=== PATIENT | female | born 1980 | race Caucasian/White ===

== ENCOUNTER → 2018-03-06 | Outpatient (CLI) | payer OTHER ==
[2018-03-06 10:58] LABS: AMPHETAMINE/METHAMPHETAMINE NEG (NEG); BARBITURATES NEG (NEG); BENZODIAZEPINES NEG (NEG); CANNABINOIDS NEG (NEG); COCAINE NEG (NEG); METHADONE NEG (NEG); OPIATES NEG (NEG); PHENCYCLIDINE NEG (NEG)
== END | disposition home or self-care (01) ==
LOC: SURG 09:26
PROVIDERS: ATTEND Anesthesiology
DX: M47.817 Spondylosis without myelopathy or radiculopathy, lumbosacral region (principal); G89.4 Chronic pain syndrome; M25.512 Pain in left shoulder; I10 Essential (primary) hypertension; M19.90 Unspecified osteoarthritis, unspecified site; Z79.01 Long term (current) use of anticoagulants; Z79.899 Other long term (current) drug therapy
CPT/HCPCS: 36415; 80307; 99204

== ENCOUNTER → 2018-04-03 | Outpatient (CLI) | payer OTHER ==
[2018-04-03 11:03] LABS: BARBITURATES NEG (NEG); BENZODIAZEPINES NEG (NEG); CANNABINOIDS NEG (NEG); COCAINE NEG (NEG); METHADONE NEG (NEG); OPIATES NEG (NEG); PHENCYCLIDINE NEG (NEG)
[2018-04-03 11:04] LABS: AMPHETAMINE/METHAMPHETAMINE NEG (NEG)
== END | disposition home or self-care (01) ==
LOC: SURG 09:50
PROVIDERS: ATTEND Anesthesiology
DX: M47.817 Spondylosis without myelopathy or radiculopathy, lumbosacral region (principal); G89.4 Chronic pain syndrome; M25.512 Pain in left shoulder; I10 Essential (primary) hypertension; M19.90 Unspecified osteoarthritis, unspecified site
CPT/HCPCS: 36415; 80307; 99214

== ENCOUNTER → 2018-04-17 | Outpatient (CLI) | payer OTHER ==
[~2018-04-17] MED LIST: BUPIVACAINE MPF 0.25% 10 ML VIAL. ONE; LIDOCAINE 1% PF 30 ML VIAL. ONE
== END | disposition home or self-care (01) ==
LOC: SURG 12:03
PROVIDERS: ATTEND Anesthesiology
DX: M47.816 Spondylosis without myelopathy or radiculopathy, lumbar region (principal); Z88.2 Allergy status to sulfonamides; M19.90 Unspecified osteoarthritis, unspecified site; Z98.890 Other specified postprocedural states; Z79.899 Other long term (current) drug therapy
CPT/HCPCS: 64493; 64494; J2001; J3490